=== PATIENT | male | born 1970 | race Caucasian/White ===

== ENCOUNTER 2017-01-11 11:44 | Emergency (ER) | payer OTHER | END 2017-01-11 14:20 | disposition home or self-care (01) | LOC: ER1 11:44 | DX: R60.0 Localized edema (principal); I10 Essential (primary) hypertension | CPT/HCPCS: 93971; 99283 ==

== ENCOUNTER 2022-04-14 07:07 | Inpatient (IN) | payer OTHER ==
[~2022-04-14] VITALS: Ht 182.9 cm; Wt 117.0 kg
[~2022-04-14 07:07] MED LIST: ALLOPURINOL300 MG PO; BACTRIM DS TAB1 EACH PO; CLINDAMYCIN HC300 MG PO; COLCHICINE0.6 MG PO; DICLOFENAC SODI25 MG PO; KEFLEX500 MG PO; LISINOPRIL-HCT1 EAC2 PO
[2022-04-14 08:20] LABS: HEMOGLOBIN 12.1 gm/dl (14.0-17.5); RED BLOOD COUNT 4.43 M/UL (4.20-5.50)
[2022-04-14 08:52] LABS: BUN/CREATININE RATIO 22 (0-10)
[2022-04-15 06:59] LABS: HEMOGLOBIN 10.1 gm/dl (14.0-17.5); RED BLOOD COUNT 3.78 M/UL (4.20-5.50); WHITE BLOOD COUNT 6.4 K/UL (4.5-11.0)
[2022-04-15 07:20] LABS: BUN/CREATININE RATIO 16 (0-10)
[2022-04-16 05:49] LABS: HEMOGLOBIN 9.3 gm/dl (14.0-17.5); RED BLOOD COUNT 3.51 M/UL (4.20-5.50); WHITE BLOOD COUNT 5.3 K/UL (4.5-11.0)
[2022-04-16 06:33] LABS: BUN/CREATININE RATIO 10 (0-10)
[2022-04-17 07:11] LABS: BUN/CREATININE RATIO 11 (0-10)
[2022-04-17] MEDS ORDERED: INVANZ 1 GM VIAL1 GM IM (11:46)
[2022-04-17] MEDS ORDERED: VANCOMYCIN1 GM/2002 IV (11:46)
[2022-04-17] MEDS ORDERED: ADVIL200 M1 PO (11:46)
--- NOTE | 2022-04-17 15:44 | NUR ---
04/17/22 1520 REPORT CALLED TO JADYN AT [facility] [phone]
== END 2022-04-17 16:27 | disposition home or self-care (01) | DRG 872 ==
LOC: ER1 07:07 → CDU 09:29 → MED SURG 4 09:29
PROVIDERS: Emergency Medicine; Physician Assistant Medical; ADMIT Internal Medicine Infectious Disease
PROC: 3E03329 Introduction of Other Anti-infective into Peripheral Vein, Percutaneous Approach (ICD-10-PCS; principal; 2022-04-14)
PROC: 02HV33Z Insertion of Infusion Device into Superior Vena Cava, Percutaneous Approach (ICD-10-PCS; 2022-04-16)
PROC: B548ZZA Ultrasonography of Superior Vena Cava, Guidance (ICD-10-PCS; 2022-04-16)
DX: A41.9 Sepsis, unspecified organism (principal); M86.8X7 Other osteomyelitis, ankle and foot; M87.874 Other osteonecrosis, right foot; Z20.822 Contact with and (suspected) exposure to COVID-19; E11.69 Type 2 diabetes mellitus with other specified complication; I10 Essential (primary) hypertension; M10.9 Gout, unspecified; Z79.4 Long term (current) use of insulin; Z82.49 Family history of ischemic heart disease and other diseases of the circulatory system
CPT/HCPCS: 36415; 73630; 73718; 80048; 80053; 80202; 83605; 83735; 84550; 85025; 85027; 85652; 86140; 87040; 87070; 87077; 87186; 87205; 93005; 96374; 99285; C1751; J1335; J2543; J3370; J3475; J7030; J7070

== ENCOUNTER → 2022-05-28 | Outpatient (CLI) | payer OTHER ==
[~2022-05-28] MED LIST changes: +ADVIL200 M1 PO; +INVANZ 1 GM VIAL1 GM IM; +VANCOMYCIN1 GM/2002 IV
== END ==
LOC: OPSV 10:37
DX: Z45.2 Encounter for adjustment and management of vascular access device (principal); M86.9 Osteomyelitis, unspecified
CPT/HCPCS: G0463